=== PATIENT | male | born 1985 | race Caucasian/White ===

== ENCOUNTER 2018-09-29 19:51 | Emergency (ER) | payer MEDICAID ==
[~2018-09-29] VITALS: Ht 177.8 cm; Wt 90.7 kg
--- NOTE | 2018-09-29 20:10 | NUR ---
ED Nurse Note: RECIEVED PT FROM HOME, HERE WITH C/O SEVERE 10/10 HEADACHE FOR PAST 3 DAYS WITH NAUSEA AND VOMITING, PT DENIES PHOTOPHOBIA OR FEVERS OR ANY OTHER DISCOMFORTS, DENIES HISTORY OF Addendum: 09/29/18 at 2052 by ENIGHTINGA AMEND : DENIES HISTORY OF MIGRAINES, PT ASSISTED TO ROOM, LIGHTS DIMMED, WILL RESUME CARE ORDERED AND CLOSELY MONITOR.
[2018-09-29] MEDS ORDERED: Ketorolac 30mg Inj IM ONE (20:15)
--- NOTE | 2018-09-29 20:43 | Diagnostic Imaging Report ---
Indication: Headache Technique: Contiguous 5 mm thick transaxial imaging of the head obtained in a Siemens Sensation [address] scanner. Soft tissue and bone windows generated. Automatic Exposure Control was utilized. Total Dose length Product (DLP): 1600.[address] Dose Index Volume (CTDIvol): 70.38 mGy Comparison: none Findings: There is a 5 mm hypodense subdural collection over portions of the left frontal temporal and parietal convexity consistent with a subdural hematoma. Within the subdural collection there is a 1 cm round focus of high density over the left parietal convexity in one discrete location. Based on the density, this is an acute hematoma. There is no skull fracture. There is no associated midline shift. The cerebral sulci appear symmetric and normal. Basal cisterns appear normal. There is no mass effect on the ventricles which appear symmetric. IMPRESSION: Acute subdural hematoma over the left cerebral convexity. Whether a component of this may be older is not known. Minimal mass effect on the left cerebral parenchyma without midline shift. [facility] has communicated the preliminary results to the Emergency Department. Their findings are largely concordant with this report. The CT scanner at [facility] is accredited by the [employer] and the scans are performed using dose optimization techniques as appropriate to a performed exam including Automatic Exposure control.
--- NOTE | 2018-09-29 20:48 | NUR ---
ED Nurse Note: PT NOTED TO HAVE SUBDURAL FROM CT-SCAN, TRANSFERRED TO MONITORED BED FOR CONTINUED CARE.
--- NOTE | 2018-09-29 20:50 | NUR ---
ED Nurse Note: pt arrived accompanied by family member. states she had headache 10/10 for the last 3 weeks. patient is alert x4, able to ambulate without difficulties. Bed is in lowest position. safety measure provided. Bp 110/66, LA 77, RR18 . will continue to monitor.
[2018-09-29 21:14] VITALS: BP 110/66
[2018-09-29] MEDS ORDERED: levETIRAcetam 1,000mg/NS100ml 100 ML IVPB ONE (21:15)
[2018-09-29 21:25] LABS: BASOPHILS % (AUTO) 0.8 % (0.0-2.0); EOSINOPHILS % (AUTO) 2.5 % (0.0-3.0); HEMATOCRIT 38.5 % (42.0-52.0); HEMOGLOBIN 12.6 G/DL (14.2-18.0); LYMPHOCYTES % (AUTO) 23.3 % (20.0-45.0); MEAN CORPUSCULAR VOLUME 88 FL (80-99); MONOCYTES % (AUTO) 11.1 % (1.0-10.0); NEUTROPHILS % (AUTO) 62.3 % (45.0-75.0); PLATELET COUNT 345 K/UL (150-450); RED BLOOD COUNT 4.36 M/UL (4.70-6.10); RED CELL DISTRIBUTION WIDTH 11.5 % (11.6-14.8); WHITE BLOOD COUNT 5.4 K/UL (4.8-10.8)
--- NOTE | 2018-09-29 21:25 | NUR ---
ED Nurse Note: Face sheet and CT result faxed to [facility].
[2018-09-29 21:44] LABS: ANION GAP 8 mmol/L (5-15); BLOOD UREA NITROGEN 12 mg/dL (7-18); CALCIUM 9.3 MG/DL (8.5-10.1); CARBON DIOXIDE 27 MMOL/L (21-32); CHLORIDE 100 MMOL/L (98-107); CREATININE 0.8 MG/DL (0.55-1.30); POTASSIUM 4.1 MMOL/L (3.5-5.1); SODIUM 135 MMOL/L (136-145)
[2018-09-29 21:48] LABS: ALANINE AMINOTRANSFERASE 19 U/L (12-78); ALBUMIN 3.7 G/DL (3.4-5.0); ALBUMIN/GLOBULIN RATIO 0.9 (1.0-2.7); ALKALINE PHOSPHATASE 125 U/L (46-116); ASPARTATE AMINO TRANSFERASE 16 U/L (15-37); BILIRUBIN,TOTAL 0.3 MG/DL (0.2-1.0)
--- NOTE | 2018-09-29 22:23 | Emergency Room Report ---
History of Present Illness General Chief Complaint: Headache Source: Patient Present Illness HPI 33-year-old male presents ED for evaluation. Complaining of headache x2 weeks. Left-sided, throbbing, 8 out of 10, nonradiating. Denies photophobia or blurry vision. Denies nausea or vomiting. Denies neck stiffness. Denies fevers or chills. Was seen by PMD this week and was told that he had a tooth infection was placed on Levaquin. States headache is not resolving. Notes history of HIV. Is currently taking medication. No other aggravating relieving factors. Denies any other associated symptoms Allergies: Coded Allergies: No Known Allergies (Unverified , 09/29/18) Patient History Past Medical History: HIV Past Surgical History: none Pertinent Family History: none Social History: Denies: smoking, alcohol use, drug use Immunizations: UTD Reviewed Nursing Documentation: PMH: Agreed; PSxH: Agreed Nursing Documentation-PMH Past Medical History: No History, Except For Hx Cancer: No - HIV Review of Systems All Other Systems: negative except mentioned in HPI Physical Exam Vital Signs Date Time Temp Pulse Resp B/P (MAP) Pulse Ox O2 Delivery O2 Flow Rate FiO2 09/29/18 19:58 97.9 114 18 108/74 (85) 96 Room Air Sp02 EP Interpretation: reviewed, normal General Appearance: no apparent distress, alert, GCS 15, non-toxic Head: normocephalic, atraumatic Eyes: bilateral eye normal inspection, bilateral eye PERRL, bilateral eye EOMI ENT: hearing grossly normal, normal pharynx, no angioedema, normal voice Neck: full range of motion, supple, no meningismus, supple/symm/no masses Respiratory: chest non-tender, lungs clear, normal breath sounds, speaking full sentences Cardiovascular #1: regular rate, rhythm, no edema Cardiovascular #2: 2+ carotid (R), 2+ carotid (L), 2+ radial (R), 2+ radial (L) , 2+ dorsalis pedis (R), 2+ dorsalis pedis (L) Gastrointestinal: normal bowel sounds, non tender, soft, non-distended, no guarding, no rebound Rectal: deferred Genitourinary: normal inspection, no CVA tenderness Musculoskeletal: back normal, gait/station normal, normal range of motion, non- tender Neurologic: alert, oriented x3, responsive, tissue technologist III-XII nml as tested, motor strength/tone normal, sensory intact, speech normal Psychiatric: judgement/insight normal, memory normal, mood/affect normal, no suicidal/homicidal ideation Reflexes: 3+ bicep (R), 3+ bicep (L), 3+ tricep (R), 3+ tricep (L), 3+ knee (R) , 3+ knee (L) Lymphatic: no adenopathy Procedures Critical Care Time Critical Care Time i. I feel this is a highly complex case requiring extensive working including EKG/Rhythm strip, Xray/CT/US, Blood/urine lab work, repeat exams while in ED, and administration of strong opiates/narcotics for pain control, admission to hospital or close patient follow up. Total time: 50 min bedside evaluation and treatment excludes procedures (EKG). Reason for critical care: subdural hematoma Possible complications: hypotension, hypertension, OR, shock, arrhythmias, metabolic acidosis, end organ damage, respiratory failure. Interventions: CT head, labs, keppra, consultation with neurosurgery. Course: presenting with headache. Given pain meds, CT head. CT head shows subdural on left with mass-effect. No focal neurological deficits. Labs unremarkable. Given IV Keppra. Discussed with neurosurgery at [facility]. Patient will be transferred Consultations: nursing staff, EMS, family Performed by: Dr Ramirez Tolerated well condition = critical j. because of unstable vital signs this patient had a condition that could potentially threaten life or limb. I feel this is a critical patient who required my full attention while patient was considered critical. Total Critical Care Time excluding procedures was greater than 50 minutes Medical Decision Making Diagnostic Impression: Primary Impression: Subdural hematoma ER Course Hospital Course 33 yo M presents with headache Differential diagnosis includes- migraine, intracranial injury, dehydration Clinical course Patient placed on stretcher. Initial history and physical I ordered pain meds, CT head CT head shows subdural on left with mass-effect. Midline shift. Has no focal neurological deficits. Denies any recent fall or injury. Labs unremarkable. No coagulopathy. Given loading dose of Keppra. Patient is protecting airway and therefore should not be intubated. Patient will be transferred at [facility] for higher level of care. Case endorsed to neurosurgeon i. I feel this is a highly complex case requiring extensive working including EKG/Rhythm strip, Xray/CT/US, Blood/urine lab work, repeat exams while in ED, and administration of strong opiates/narcotics for pain control, admission to hospital or close patient follow up. Diagnosis - subdural hematoma transferred in critical condition Labs Test 09/29/18 21:00 White Blood Count 5.4 K/UL (4.8-10.8) Red Blood Count 4.36 M/UL (4.70-6.10) Hemoglobin 12.6 G/DL (14.2-18.0) Hematocrit 38.5 % (42.0-52.0) Mean Corpuscular Volume 88 FL (80-99) Mean Corpuscular Hemoglobin 28.9 PG (27.0-31.0) Mean Corpuscular Hemoglobin Concent 32.7 G/DL (32.0-36.0) Red Cell Distribution Width 11.5 % (11.6-14.8) Platelet Count 345 K/UL (150-450) Mean Platelet Volume 5.2 FL (6.5-10.1) Neutrophils (%) (Auto) 62.3 % (45.0-75.0) Lymphocytes (%) (Auto) 23.3 % (20.0-45.0) Monocytes (%) (Auto) 11.1 % (1.0-10.0) Eosinophils (%) (Auto) 2.5 % (0.0-3.0) Basophils (%) (Auto) 0.8 % (0.0-2.0) Prothrombin Time 10.6 SEC (9.30-11.50) Prothromb Time International Ratio 1.0 (0.9-1.1) Activated Partial Thromboplast Time 29 SEC (23-33) Sodium Level 135 MMOL/L (136-145) Potassium Level 4.1 MMOL/L (3.5-5.1) Chloride Level 100 MMOL/L (98-107) Carbon Dioxide Level 27 MMOL/L (21-32) Anion Gap 8 mmol/L (5-15) Blood Urea Nitrogen 12 mg/dL (7-18) Creatinine 0.8 MG/DL (0.55-1.30) Estimat Glomerular Filtration Rate > 60 mL/min (>60) Glucose Level 125 MG/DL (74-106) Calcium Level 9.3 MG/DL (8.5-10.1) Total Bilirubin 0.3 MG/DL (0.2-1.0) Aspartate Amino Transf (AST/SGOT) 16 U/L (15-37) Alanine Aminotransferase (ALT/SGPT) 19 U/L (12-78) Alkaline Phosphatase 125 U/L (46-116) Total Protein 8.0 G/DL (6.4-8.2) Albumin 3.7 G/DL (3.4-5.0) Globulin 4.3 g/dL Albumin/Globulin Ratio 0.9 (1.0-2.7) CT/MRI/US Diagnostic Results CT/MRI/US Diagnostic Results : Imaging Test Ordered: CT Head Impression Small acute on probable chronic subdural hematoma along the left cerebral convexity measuring up to 11 mm. This causes mild mass effect on the adjacent parenchyma and left lateral ventricle. There is minimal rightward midline shift of approximately 3 mm. Last Vital Signs Date Time Temp Pulse Resp B/P (MAP) Pulse Ox O2 Delivery O2 Flow Rate FiO2 09/29/18 21:14 98.7 77 18 110/66 100 Room Air Status: improved [facility] Condition: Critical Referrals: NON PHYSICIAN (PCP) Aj Ramirez MD Sep 29, 2018 22:23
[2018-09-29 23:10] VITALS: BP 112/75
--- NOTE | 2018-09-29 23:15 | NUR ---
ER DISCHARGE NOTE: Patient is was picked up by [facility] and is transfered to [facility]. report given to JAJA Bailey , pt is aox4, on room air, with stable vital signs. patient was transfered via gurney
== END 2018-09-30 00:44 | disposition short-term general hospital (02) ==
LOC: EMR 20:33
DX: I62.01 Nontraumatic acute subdural hemorrhage (principal)
CPT/HCPCS: 36415; 70450; 80053; 85025; 85610; 85730; 86850; 86900; 86901; 96372; 96374; 99291; J1885; J1953